=== PATIENT | male | born 1975 | race African-American/Black ===

== ENCOUNTER 2018-05-07 14:44 | Emergency (ER) | payer OTHER, BC ==
[2018-05-07 14:49] VITALS: BP 168/95; PULSE 93; TEMP 98.7; BMI 59.3
[2018-05-07] MEDS ORDERED: NAPROXEN 500 MG TABLET (FP) PO ONE (14:57)
--- NOTE | 2018-05-07 14:58 | PDOC ---
Attending Attestation - Resident Resident Name: Jasbir Horta - ED Attending Attestation I have performed the following: I have examined & evaluated the patient, The case was reviewed & discussed with the resident, I agree w/resident's findings & plan, Exceptions are as noted - HPI HPI: 05/07/18 14:54 42y M presentnig with R toe pain. The patient states he was ok ysterday, but started having increased pain to the area lateral to his R toe. Pt denies any recent trauma/falls/injuries, increased waelking. Pt notse it is painful to walking, particularly when he is coming down from his step. denies pain anywhere else, numbness/tingling/weakness, fever/chills. No other joint pain, cp, sob, back pain, dairrhea, dysuria, penile dc on exam pt has mild ttp to area superior to the latearl aspect of the hallux. no pain when palpating the top/bottom of MCP. no erythema/induration/fluctuance normal ROM of toe, mild pain on hyper flexion suspect inflammation, possible bursitis will treat supportively with NSAIDS, rest will have tp fu with pmd in a few days for reassessment xray neg for acute process
[2018-05-07] MEDS ORDERED: NAPROXEN 500 MG TABLET (FP) ONE (14:59)
--- NOTE | 2018-05-07 15:29 | PDOC ---
History of Present Illness - General History Source: Patient Exam Limitations: No Limitations - History of Present Illness Initial Comments: 05/07/18 15:08 The patient is a 42M with a PMH of morbid obesity and asthma who presents to the ER with complaints of R foot pain. The patient states that he began to notice a pain (which he cannot describe) on his R MTP joint, nonradiating, worsened by stepping or pressing on it. He states that he noticed it approximately 24 hours ago but didn't think much of it. He woke up in the middle of the night and could not ambulate. He fell back asleep and presented today in our ER. He denies any fever, chills, nausea, vomiting, CP, SOB, numbness, tingling, or weakness. He denies any history of gout. He denies having a PCP. <Jasbir Horta - Last Filed: 05/07/18 15:08> <Dusty Gan - Last Filed: 05/07/18 16:06> - General Chief Complaint: Pain Stated Complaint: right great toe pain Time Seen by Provider: 05/07/18 14:45 Past History - Past Medical History Asthma: Yes COPD: No - Suicide/Smoking/Psychosocial Hx Smoking History: Current some day smoker Have you smoked in the past 12 months: Yes Number of Cigarettes Smoked Daily: 0 If you are a former smoker, when did you quit?: SMOKES A CIGAR 7-10 TIMES A YEAR Cigars Per Day: 0 Information on smoking cessation initiated: No 'Breaking Loose' booklet given: 09/10/15 Hx Alcohol Use: Yes (OCCASIONAL) Drug/Substance Use Hx: No Substance Use Type: None <Jasbir Horta - Last Filed: 05/07/18 15:08> <Dusty Gan - Last Filed: 05/07/18 16:06> - Past Medical History Allergies/Adverse Reactions: Allergies Allergy/AdvReac Type Severity Reaction Status Date / Time No Known Allergies Allergy Verified 05/07/18 14:45 Home Medications: Ambulatory Orders NK [No Known Home Medication] 05/07/18 Review of Systems - Review of Systems Able to Perform ROS?: Yes Comments:: 05/07/18 15:29 GENERAL/CONSTITUTIONAL: No fever or chills. No weakness. HEAD, EYES, EARS, NOSE AND THROAT: No change in vision. No ear pain or discharge. No sore throat. CARDIOVASCULAR: No chest pain, palpitations, or lightheadedness. RESPIRATORY: No cough, wheezing, shortness of breath, or hemoptysis. GASTROINTESTINAL: No nausea, vomiting, diarrhea, constipation, or abdominal pain. GENITOURINARY: No dysuria, frequency, hematuria, or change in urination. MUSCULOSKELETAL: Pain in R great toe. No joint or muscle swelling or pain. No neck or back pain. SKIN: No rash or lesions. NEUROLOGIC: No headache, numbness, tingling, focal weakness, loss of consciousness, or change in strength/sensation. Is the patient limited Chinese proficient: No <Jasbir Horta - Last Filed: 05/07/18 15:08> *Physical Exam - Vital Signs Last Vital Signs Temp Pulse Resp BP Pulse Ox 98.7 F 93 H 18 168/95 96 05/07/18 14:45 05/07/18 14:45 05/07/18 14:45 05/07/18 14:45 05/07/18 14:45 - Physical Exam Comments: 05/07/18 15:30 GENERAL: Well developed, well nourished. Awake and alert. No acute distress. HEENT: Normocephalic, atraumatic. Hearing grossly normal. Moist mucous membranes. NECK: Supple. Full ROM. No JVD. MUSCULOSKELETAL: TTP over R great MTP joint with mild erythema without warmth or fluctuance or swelling. Otherwise, normal range of motion at all joints. No bony deformities or tenderness. EXTREMITIES: No cyanosis. No clubbing. No edema. No calf tenderness or swelling. SKIN: Warm and dry. Normal capillary refill. No rashes. No jaundice. NEUROLOGICAL: Alert, awake, appropriate. Cranial nerves 2-12 intact. Normal speech. Gait is mildly ataxic. PSYCHIATRIC: Cooperative. Good eye contact. Appropriate mood and affect. <Jasbir Horta - Last Filed: 05/07/18 15:08> - Vital Signs Last Vital Signs Temp Pulse Resp BP Pulse Ox 98.7 F 93 H 18 168/95 96 05/07/18 14:45 05/07/18 14:45 05/07/18 14:45 05/07/18 14:45 05/07/18 14:45 <Dusty Gan - Last Filed: 05/07/18 16:06> Moderate Sedation - Procedure Monitoring Vital Signs: Procedure Monitoring Vital Signs Temperature 98.7 F 05/07/18 14:45 Pulse Rate 93 H 05/07/18 14:45 Respiratory Rate 18 05/07/18 14:45 Blood Pressure 168/95 05/07/18 14:45 O2 Sat by Pulse Oximetry (%) 96 05/07/18 14:45 <Jasbir Horta - Last Filed: 05/07/18 15:08> - Procedure Monitoring Vital Signs: Procedure Monitoring Vital Signs Temperature 98.7 F 05/07/18 14:45 Pulse Rate 93 H 05/07/18 14:45 Respiratory Rate 18 05/07/18 14:45 Blood Pressure 168/95 05/07/18 14:45 O2 Sat by Pulse Oximetry (%) 96 05/07/18 14:45 <Dusty Gan - Last Filed: 05/07/18 16:06> ED Treatment Course - RADIOLOGY Radiology Studies Ordered: Category Date Time Status FOOT-RIGHT [RAD] Stat Radiology 05/07/18 14:57 Ordered - Medications Given in the ED: ED Medications Discontinued Medications Generic Name Dose Route Start Last Admin Trade Name Freq PRN Reason Stop Dose Admin Naproxen 500 mg 05/07/18 14:57 05/07/18 15:01 Naprosyn - PO 05/07/18 14:58 500 mg ONCE ONE Administration <Jasbir Horta - Last Filed: 05/07/18 15:08> - Medications Given in the ED: ED Medications Discontinued Medications Generic Name Dose Route Start Last Admin Trade Name Freq PRN Reason Stop Dose Admin Naproxen 500 mg 05/07/18 14:57 05/07/18 15:01 Naprosyn - PO 05/07/18 14:58 500 mg ONCE ONE Administration <Dusty Gan - Last Filed: 05/07/18 16:06> Medical Decision Making - Medical Decision Making 05/07/18 15:35 The patient is a 42M with a PMH of morbid obesity and asthma who presents to the ER with pain in his R great MTP. Not likely an abscess or septic joint as there is minimal redness but it is tender to palpation w/o restriction in ROM. DP pulses present 2+. Will give naprosyn and XR foot and reassess. <Oraha,Jasbir - Last Filed: 05/07/18 15:08> *DC/Admit/Observation/Transfer <Jasbir Horta - Last Filed: 05/07/18 15:08> - Discharge Dispostion Decision to Admit order: No <Dusty Gan - Last Filed: 05/07/18 16:06> Diagnosis at time of Disposition: Toe pain, right - Discharge Dispostion Disposition: HOME Condition at time of disposition: Stable - Patient Instructions Printed Discharge Instructions: DI for Bursitis Additional Instructions: Return to the emergency department immediately with ANY new, persistent or worsening symptoms ncluding any worsening pain, swelling, fevers, numbness/ tingling/weakness or other concerns. I suspect your pain may be due to a mild bursitis. Rest. Take ibuprofen and keep your leg elevated. You MUST call and follow up with your doctor in 4-5 days for further evaluation of your symptoms. Results were discussed with you. Please make sure your doctor reviews the results of your emergency evaluation. Print Language: SETSWANA - Post Discharge Activity Forms/Work/School Notes: Back to Work
== END 2018-05-07 16:11 | disposition home or self-care (01) ==
LOC: FER 14:44
DX: M79.674 Pain in right toe(s) (principal); E66.01 Morbid (severe) obesity due to excess calories; Z68.43 Body mass index [BMI] 50.0-59.9, adult; F17.210 Nicotine dependence, cigarettes, uncomplicated; J45.909 Unspecified asthma, uncomplicated
CPT/HCPCS: 73630-TC-RT-FY; 99282-25

== ENCOUNTER 2021-02-13 19:44 | Emergency (ER) | payer BC, OTHER ==
[2021-02-13 20:03] VITALS: BP 147/85; PULSE 97; TEMP 97.8; BMI 57.7
[2021-02-13] MEDS ORDERED: KETOROLAC TROMETHAMINE 60 MG/2 ML VIAL IM ONE (20:47)
[2021-02-13] MEDS ORDERED: KETOROLAC TROMETHAMINE 60 MG/2 ML VIAL ONE (20:50)
[2021-02-13] MEDS ORDERED: CIPROFLOXACIN 500 MG TABLET (RESTRICTED TO ID) PO ONE (21:58)
[2021-02-13] MEDS ORDERED: CIPROFLOXACIN 250 MG TABLET (RESTRICTED TO ID) PO ONE (22:15)
[2021-02-13] MEDS ORDERED: predniSONE 20 MG TABLET (UD) PO ONE (23:34)
[2021-02-13] MEDS ORDERED: predniSONE 20 MG TABLET (UD) ONE (23:35)
== END 2021-02-13 23:53 | disposition home or self-care (01) ==
LOC: FER 19:44
PROC: 3E023GC Introduction of Other Therapeutic Substance into Muscle, Percutaneous Approach (ICD-10-PCS; principal; 2021-02-13)
DX: M54.31 Sciatica, right side (principal); N39.0 Urinary tract infection, site not specified
CPT/HCPCS: 81003; 81015; 87086; 87186; 99284-25

== ENCOUNTER 2022-05-31 03:53 | Observation (INO) | payer BC ==
[2022-05-31] MEDS ORDERED: PIPERACILLIN/TAZOB 3.375 GM 3.375 GM in DEXTROSE 5%-WATER - 50 ML IVPB ONE (04:21)
[2022-05-31 04:23] VITALS: BMI 60.3
[2022-05-31] MEDS ORDERED: VANCOMYCIN 1 GM PREMIX - 1 GM/200 ML BAG IVPB ONE (05:00)
[2022-05-31] MEDS ORDERED: PIPERACILLIN/TAZOBACTAM 4.5 GM VIAL IVPB ONE (05:15)
[2022-05-31] MEDS ORDERED: PIPERACILLIN/TAZOB 4.5 GM 4.5 GM in DEXTROSE 5%-WATER 100 ML IVPB ONE (05:15)
[2022-05-31] MEDS ORDERED: VANCOMYCIN 1,000 MG VIAL (RESTRICTED TO ID ONLY) ONE (06:02)
[2022-05-31 06:34] LABS: BASO % 0.9 % (0-2.0); EOS % 4.5 % (0-4.5); HEMATOCRIT 38.7 % (35.4-49); HEMOGLOBIN 12.1 GM/dL (11.7-16.9); LYMPH % 22.7 % (8-40); MCH 28.3 pg (25.7-33.7); MCHC 31.2 g/dl (32.0-35.9); MEAN CELL VOLUME 90.5 fl (80-96); MEAN PLT VOLUME 8.7 fl (7.5-11.1); MONO % 10.4 % (3.8-10.2); NEUT % 61.5 % (42.8-82.8); PLATELET COUNT 261 10^3/uL (134-434); RBC 4.27 M/mm3 (4.00-5.60); RDW 13.8 % (11.9-15.9); WHITE BLOOD COUNT 8.6 K/mm3 (4.0-10.0)
[2022-05-31 06:52] LABS: ALBUMIN 3.1 g/dl (3.4-5.0); BLOOD UREA NITROGEN 15.4 mg/dL (7-18)
[2022-05-31 06:54] LABS: CREATININE 1.2 mg/dL (0.55-1.3)
[2022-05-31 06:56] LABS: BILIRUBIN,TOTAL 0.5 mg/dL (0.2-1); TOT PROT 7.4 g/dl (6.4-8.2)
[2022-05-31 06:59] LABS: INR 0.97 (0.83-1.09); PROTHROMBIN TIME (PATIENT) 11.2 SEC (9.7-13.0)
[2022-05-31 07:50] LABS: EPITHELIAL CELLS FEW /hpf
[2022-05-31] MEDS: PIPERACILLIN/TAZOB 4.5 GM 4.5 GM in DEXTROSE 5%-WATER 100 ML IVPB SCH ×2 (10:45→15:40)
[2022-05-31] MEDS: INSULIN SLIDING SCALE (NOVOLOG) 1 VIAL SQ SCH ×3 (13:54→21:45)
[2022-05-31] MEDS: amLODIPine BESYLATE 10 MG TABLET (FP) PO SCH (14:07)
[2022-05-31] MEDS: ENOXAPARIN NA (PORCINE) 40 MG/0.4 ML DISP.SYRIN SQ SCH (14:08)
[2022-05-31] MEDS ORDERED: PIPERACILLIN/TAZOB 4.5 GM 4.5 GM in DEXTROSE 5%-WATER 100 ML IVPB SCH (15:00)
[2022-05-31] MEDS: NYSTATIN 100000 UNIT/GM TOPICAL OINTMENT 15 GM TUBE TP SCH (21:43)
[2022-06-01] MEDS: PIPERACILLIN/TAZOB 3.375 GM 3.375 GM in DEXTROSE 5%-WATER - 50 ML IVPB SCH ×3 (00:15→15:57)
[2022-06-01] MEDS: INSULIN SLIDING SCALE (NOVOLOG) 1 VIAL SQ SCH ×4 (06:40→21:55)
[2022-06-01 08:23] LABS: HEMATOCRIT 38.3 % (35.4-49); MCHC 33.9 g/dl (32.0-35.9); MEAN CELL VOLUME 88.6 fl (80-96); MEAN PLT VOLUME 8.1 fl (7.5-11.1); RBC 4.32 10^6/uL (4.00-5.60); RDW 14.1 % (11.9-15.9); WHITE BLOOD COUNT 8.1 10^3/uL (4.0-10.8)
[2022-06-01 08:43] LABS: ALBUMIN 3.3 g/dl (3.4-5.0); BILIRUBIN,TOTAL 1.4 mg/dl (0.2-1); CALCIUM 8.7 mg/dl (8.5-10); TOT PROT 7.2 g/dl (6.4-8.2)
[2022-06-01] MEDS: amLODIPine BESYLATE 10 MG TABLET (FP) PO SCH (09:57)
[2022-06-01] MEDS: NYSTATIN 100000 UNIT/GM TOPICAL OINTMENT 15 GM TUBE TP SCH ×2 (09:59→21:53)
[2022-06-01] MEDS: ENOXAPARIN NA (PORCINE) 40 MG/0.4 ML DISP.SYRIN SQ SCH (09:59)
[2022-06-01] MEDS ORDERED: FUROSEMIDE 40 MG/4 ML INJECTABLE VIAL IVPUSH ONE (10:20)
[2022-06-02] MEDS: PIPERACILLIN/TAZOB 3.375 GM 3.375 GM in DEXTROSE 5%-WATER - 50 ML IVPB SCH ×3 (00:47→15:29)
[2022-06-02] MEDS: INSULIN SLIDING SCALE (NOVOLOG) 1 VIAL SQ SCH ×2 (06:29→15:28)
[2022-06-02 08:37] LABS: ALBUMIN 3.1 g/dl (3.4-5.0); CALCIUM 8.9 mg/dl (8.5-10); CREATININE 1.1 mg/dl (0.55-1.3); TOT PROT 6.8 g/dl (6.4-8.2)
[2022-06-02] MEDS: amLODIPine BESYLATE 10 MG TABLET (FP) PO SCH (09:51)
[2022-06-02] MEDS: ENOXAPARIN NA (PORCINE) 40 MG/0.4 ML DISP.SYRIN SQ SCH (09:51)
[2022-06-02] MEDS: NYSTATIN 100000 UNIT/GM TOPICAL OINTMENT 15 GM TUBE TP SCH (09:52)
[2022-06-02 10:01] LABS: BASO % 0.4 % (0-2.0); EOS % 5.7 % (0-4.5); HEMATOCRIT 39.1 % (35.4-49); HEMOGLOBIN 12.4 GM/dL (11.7-16.9); LYMPH % 23.1 % (8-40); MCH 28.4 pg (25.7-33.7); MCHC 31.7 g/dl (32.0-35.9); MEAN CELL VOLUME 89.7 fl (80-96); MEAN PLT VOLUME 8.6 fl (7.5-11.1); MONO % 11.8 % (3.8-10.2); PLATELET COUNT 262 10^3/uL (134-434); RBC 4.37 M/mm3 (4.00-5.60); RDW 13.9 % (11.9-15.9); WHITE BLOOD COUNT 8.6 K/mm3 (4.0-10.0)
[2022-06-02 10:02] VITALS: PULSE 97; RESP 19
[2022-06-02] MEDS ORDERED: FUROSEMIDE 40 MG/4 ML INJECTABLE VIAL IVPUSH ONE (11:00)
[2022-06-02 16:42] VITALS: BP 140/85; TEMP 98.9
== END 2022-06-02 16:44 | disposition home or self-care (01) ==
LOC: FER 03:53 → FM/S 09:09 → INTOOBSV 09:09 → FM/S 10:30
PROC: 3E033GC Introduction of Other Therapeutic Substance into Peripheral Vein, Percutaneous Approach (ICD-10-PCS; principal; 2022-05-31)
PROC: 3E03329 Introduction of Other Anti-infective into Peripheral Vein, Percutaneous Approach (ICD-10-PCS; 2022-05-31)
DX: N47.1 Phimosis (principal); N50.89 Other specified disorders of the male genital organs; E11.9 Type 2 diabetes mellitus without complications; N48.1 Balanitis; E66.01 Morbid (severe) obesity due to excess calories; R32 Unspecified urinary incontinence; Z68.44 Body mass index [BMI] 60.0-69.9, adult; I10 Essential (primary) hypertension; E78.5 Hyperlipidemia, unspecified; Z72.0 Tobacco use
CPT/HCPCS: 36415; 71045-TC-FY; 76870-TC; 80053; 80061; 81003; 81015; 82962; 83036; 83605; 83735; 83880; 84100; 84443; 85025; 85027; 85610; 86850; 86900; 86901; 87040; 87086; 93005; 96365; 96366; 96367; 96368; 96375; 96376; 99285-25; C9803-CS; G0378; U0003; U0005